=== PATIENT | female | born 1965 | race Caucasian/White ===

== ENCOUNTER 2019-11-18 11:41 | Day surgery (SDC) | payer MEDICARE, OTHER ==
[2019-11-17 08:41] VITALS: BMI 44.2
[~2019-11-18 11:41] MED LIST: LACTATED RINGERS 1,000 ML IV SCH; LIDOCAINE 1% (10MG/ML) FOR IV START INTRADERMA PRN
[2019-11-18 12:06] VITALS: TEMP 97.4
[2019-11-18] MEDS ORDERED: MIDAZOLAM 2 MG/2 ML VIAL ONE (12:14)
[2019-11-18] MEDS ORDERED: PROPOFOL 10 MG/ML 20 ML VIAL IV ONE (12:14)
--- NOTE | 2019-11-18 12:32 | P.PCN ---
Date of Procedure: 11/18/19 Procedure(s) Performed: BRIEF HISTORY: Patient is a 54-year-old pleasant female scheduled for an elective colonoscopy as a part of screening for colorectal neoplasia. PROCEDURE PERFORMED: Colonoscopy. PREOPERATIVE DIAGNOSIS: Screening for colon cancer. IV sedation per Anesthesia. PROCEDURE: After informed consent was obtained, the patient, was brought into the endoscopy unit. IV sedation was administered by Anesthesia under continuous monitoring. Digital rectal examination was normal. Initially the Olympus CF-160 flexible video colonoscope was then inserted in the rectum, gradually advanced into the cecum without any difficulty. Careful examination was performed as the scope was gradually being withdrawn. Ileocecal valve and the appendiceal orifice were visualized and appeared normal. Prep was excellent. Mucosa of the cecum, ascending colon, transverse colon, descending colon, sigmoid colon, and rectum appeared normal. Scattered sigmoidal diverticulosis seen. Retroflexion was performed in the rectum and no lesions were seen. The patient tolerated the procedure well. IMPRESSION: Normal-appearing colon from rectum to cecum with no evidence of colorectal neoplasia Scattered sigmoidal diverticulosis. RECOMMENDATIONS: Findings of this examination were discussed with the patient as well as her family. She was advised to have a repeat screening colonoscopy in 10 years.
[2019-11-18 12:49] VITALS: RESP 16
[2019-11-18 13:00] VITALS: BP 160/86; PULSE 61
== END 2019-11-18 13:12 | disposition home or self-care (01) ==
LOC: ORWHC2ENDO 11:41
PROVIDERS: ATTEND Internal Medicine Gastroenterology
DX: Z12.11 Encounter for screening for malignant neoplasm of colon (principal); K57.30 Diverticulosis of large intestine without perforation or abscess without bleeding; Z88.5 Allergy status to narcotic agent; Z91.040 Latex allergy status; Z79.890 Hormone replacement therapy; E07.9 Disorder of thyroid, unspecified; E66.01 Morbid (severe) obesity due to excess calories; Z68.42 Body mass index [BMI] 45.0-49.9, adult
CPT/HCPCS: J2250; J2704; G0121

== ENCOUNTER → 2019-11-25 | Outpatient (CLI) | payer MEDICARE ==
--- NOTE | 2019-11-25 18:20 | CT ---
EXAMINATION TYPE: CT ANGIO RT AXILLA W CON W 2-D MPR RECONS DATE OF EXAM: 11/25/2019 6:01 PM HISTORY: Rt upper arm limb pain. Acute embolism and thrombosis of deep veins. Pt was told blood clot in RT arm from US imaging from another hospital. No hx but daughter just passed from blood clot. Pt h abitus difficult to get entire arm in view. TECHNIQUE: Performed with IV Contrast, patient injected with 100 mL of Isovue 370. Automated exposure control for dose reduction was used. CT DLP: 770.30 mGycm COMPARISON: None FINDINGS: Imaging of the right axilla was obtained. The vasculature is normally opacified without filling defects to suggest embolism/thrombosis. No incidental findings. IMPRESSION: NEGATIVE EXAMINATION.
--- NOTE | 2019-11-25 18:27 | CT ---
EXAMINATION TYPE: CT angio chest w cont w reconstruction renderings DATE OF EXAM: 11/25/2019 6:01 PM COMPARISON: None HISTORY: Rt upper arm limb pain. Acute embolism and thrombosis of deep veins. Pt was told blood clot in RT arm from US imaging from another hospital. No hx but daughter just passed from blood clot. Pt h abitus difficult to get entire arm in view. CT DLP: 1250.50 mGycm Automated exposure control for dose reduction was used. CONTRAST: CTA scan of the thorax is performed with IV Contrast, patient injected with 100 mL of Isovu e 370, pulmonary embolism protocol; multiple reconstruction renderings. FINDINGS: LUNGS: The lungs are grossly clear, there is no concerning parenchymal mass or nodule identified. The re is no pleural effusion or pneumothorax seen. The tracheobronchial tree is patent. MEDIASTINUM: There is mild cardiomegaly. No pericardial effusion. No acute aortic findings. Pulmonary arterial tree is patent without evidence of filling defects to suggest pulmonary emboli. There is ao rtic tortuosity. No adenopathy. SUPRACLAVICULAR/AXILLARY POSITIONS: The vasculature appears widely patent without filling defects to suggest thrombus. No incidental findings. OTHER: No additional significant abnormality is seen. IMPRESSION: 1. Negative for pulmonary embolism. 2. Mild cardiomegaly. 3. Thoracic aortic tortuosity.
== END | disposition home or self-care (01) ==
LOC: RADCTMAIN 15:56
PROVIDERS: ATTEND Family Medicine
DX: I51.7 Cardiomegaly (principal); Q25.46 Tortuous aortic arch; I82.621 Acute embolism and thrombosis of deep veins of right upper extremity; M79.621 Pain in right upper arm; M79.89 Other specified soft tissue disorders
CPT/HCPCS: 71275; 73206; Q9967

== ENCOUNTER 2020-09-01 06:32 | Observation (INO) | payer MEDICARE ==
[2020-09-01] MEDS ORDERED: SODIUM CHLORIDE 0.9% 500 ML 500 ML IV STA (06:55)
[2020-09-01] MEDS ORDERED: hydrALAZINE HCL 20 MG/ML 1 ML VIAL IVP STA ×2 (06:56→08:01)
--- NOTE | 2020-09-01 07:03 | ED ---
Neuro HPI - General Source: patient, family, RN notes reviewed Mode of arrival: ambulatory Limitations: no limitations - History of Present Illness Is the patient presenting with stroke symptoms?: No <Abner Moore - Last Filed: 09/01/20 08:11> <Johnny Gutierres - Last Filed: 09/01/20 08:24> - General Chief Complaint: Neuro Symptoms/Deficit Stated Complaint: R sided numbness Time Seen by Provider: 09/01/20 06:43 - History of Present Illness Initial Comments: This a 55-year-old female presents emergency Department with chief complaint of right-sided numbness. Patient states symptoms started around 2 AM she states started with a warm sensation to her right side of her face, right ear states that progressed to numbness of her face, tongue right arm and right leg. Patient states it lasted which she felt like a while but states it was only approximately 1 minute. Patient states she did call EMS EMS did arrive evaluated the patient and the patient signed off. Patient states that she had no symptoms at that time. She states now she has some right jaw, right cheek pa in. Patient states he has no symptoms of her upper or lower extremity other and she just feels generalized weak. 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 Patient has been and is followed by a neurologist as CMT clinic. Patient states that she does have history of hypothyroidism on medications no history of hypertension she states sometimes she has some whitecoat syndrome. Patient denies any abdominal pain including nausea vomiting no chest pain or shortness of breath. (Abner Moore) - Related Data Home Medications: Home Medications Medication Instructions Recorded Confirmed Levothyroxine Sodium 150 mcg PO DAILY 11/17/19 11/18/19 Allergies/Adverse Reactions: Allergies Allergy/AdvReac Type Severity Reaction Status Date / Time latex Allergy Rash/Hives Verified 09/01/20 06:37 meperidine [From Demerol] Allergy Nausea & Verified 09/01/20 06:37 Vomiting Review of Systems ROS Other: All systems not noted in ROS Statement are negative. <Abner Moore - Last Filed: 09/01/20 08:11> ROS Other: All systems not noted in ROS Statement are negative. <Johnny Gutierres - Last Filed: 09/01/20 08:24> ROS Statement: Those systems with pertinent positive or pertinent negative responses have been documented in the HPI. General Exam Limitations: no limitations General appearance: alert, in no apparent distress Head exam: Present: atraumatic, normocephalic, normal inspection Eye exam: Present: normal appearance, PERRL, EOMI. Absent: scleral icterus, conjunctival injection, periorbital swelling ENT exam: Present: normal exam, normal oropharynx, mucous membranes moist Neck exam: Present: normal inspection, full ROM. Absent: tenderness, meningismus, lymphadenopathy Respiratory exam: Present: normal lung sounds bilaterally. Absent: respiratory distress, wheezes, rales, rhonchi, stridor Cardiovascular Exam: Present: regular rate, normal rhythm, normal heart sounds. Absent: systolic murmur, diastolic murmur, rubs, gallop, clicks Back exam: Present: normal inspection Neurological exam: Present: alert, oriented X3, CN II-XII intact, reflexes solo l. Absent: motor sensory deficit Expanded Patient oriented to: Present: person, place, time Speech: Present: fluid speech Cranial nerves: EOM's Intact: Normal, Gag Reflex: Normal, Tongue Deviation: Normal, Nystagmus: Normal, Facial Sensation: Normal, Facial Palsy with Forehead Movement: Normal, Facial Palsy without Forehead Movement: Normal Cerebellar function: Finger to Nose: Normal, Heel to Moreland: Normal, Romberg: Normal Upper motor neuron: Dada Neglect: Normal, Pronator Drift: Normal Sensory exam: Upper Extremity Light Touch: Normal, UE 2 Point Discrimination: Normal, Lower Extremity Light Touch: Normal Motor strength exam: RUE: 5, LUE: 5, RLE: 5, LLE: 5 Eye Response: (4) open spontaneously Motor Response: (6) obeys commands Verbal Response: (5) oriented Skin exam: Present: warm, dry, intact, normal color. Absent: rash <Abner Moore - Last Filed: 09/01/20 08:11> Stroke MDM - Lab Data Result diagrams: 09/01/20 06:58 09/01/20 06:58 - EKG Data -: EKG Interpreted by Me <Abner Moore - Last Filed: 09/01/20 08:11> - Lab Data Result diagrams: 09/01/20 06:58 09/01/20 06:58 <Johnny Gutierres - Last Filed: 09/01/20 08:24> - Lab Data Lab Results 09/01/20 09/01/20 09/01/20 Range/Units 06:58 06:58 06:58 WBC 8.8 (3.8-10.6) k/uL RBC 4.81 (3.80-5.40) m/uL Hgb 14.9 (11.4-16.0) gm/dL Hct 43.8 (34.0-46.0) % MCV 91.1 (80.0-100.0) fL MCH 30.9 (25.0-35.0) pg MCHC 34.0 (31.0-37.0) g/dL RDW 12.7 (11.5-15.5) % Plt Count 212 (150-450) k/uL MPV 8.0 Neutrophils % 64 % Lymphocytes % 28 % Monocytes % 4 % Eosinophils % 2 % Basophils % 1 % Neutrophils # 5.6 (1.3-7.7) k/uL Lymphocytes # 2.4 (1.0-4.8) k/uL Monocytes # 0.4 (0-1.0) k/uL Eosinophils # 0.2 (0-0.7) k/uL Basophils # 0.0 (0-0.2) k/uL PT 9.6 (9.0-12.0) sec INR 0.9 (<1.2) APTT 27.6 (22.0-30.0) sec Sodium 139 (137-145) mmol/L Potassium 3.9 (3.5-5.1) mmol/L Chloride 105 (98-107) mmol/L Carbon Dioxide 25 (22-30) mmol/L Anion Gap 9 mmol/L BUN 20 H (7-17) mg/dL Creatinine 0.75 (0.52-1.04) mg/dL Est GFR (CKD-EPI)AfAm >90 (>60 ml/min/1.73 sqM) Est GFR (CKD-EPI)NonAf >90 (>60 ml/min/1.73 sqM) Glucose 116 H (74-99) mg/dL Calcium 9.7 (8.4-10.2) mg/dL Total Bilirubin 0.6 (0.2-1.3) mg/dL AST 19 (14-36) U/L ALT 12 (4-34) U/L Alkaline Phosphatase 102 (38-126) U/L Creatine Kinase 58 (30-135) U/L Troponin I (0.000-0.034) ng/mL Total Protein 7.5 (6.3-8.2) g/dL Albumin 4.4 (3.5-5.0) g/dL 09/01/20 Range/Units 06:58 WBC (3.8-10.6) k/uL RBC (3.80-5.40) m/uL Hgb (11.4-16.0) gm/dL Hct (34.0-46.0) % MCV (80.0-100.0) fL MCH (25.0-35.0) pg MCHC (31.0-37.0) g/dL RDW (11.5-15.5) % Plt Count (150-450) k/uL MPV Neutrophils % % Lymphocytes % % Monocytes % % Eosinophils % % Basophils % % Neutrophils # (1.3-7.7) k/uL Lymphocytes # (1.0-4.8) k/uL Monocytes # (0-1.0) k/uL Eosinophils # (0-0.7) k/uL Basophils # (0-0.2) k/uL PT (9.0-12.0) sec INR (<1.2) APTT (22.0-30.0) sec Sodium (137-145) mmol/L Potassium (3.5-5.1) mmol/L Chloride (98-107) mmol/L Carbon Dioxide (22-30) mmol/L Anion Gap mmol/L BUN (7-17) mg/dL Creatinine (0.52-1.04) mg/dL Est GFR (CKD-EPI)AfAm (>60 ml/min/1.73 sqM) Est GFR (CKD-EPI)NonAf (>60 ml/min/1.73 sqM) Glucose (74-99) mg/dL Calcium (8.4-10.2) mg/dL Total Bilirubin (0.2-1.3) mg/dL AST (14-36) U/L ALT (4-34) U/L Alkaline Phosphatase (38-126) U/L Creatine Kinase (30-135) U/L Troponin I <0.012 (0.000-0.034) ng/mL Total Protein (6.3-8.2) g/dL Albumin (3.5-5.0) g/dL - Medical Decision Making 55-year-old female presented for results right-sided numbness, subjective weakness. Patient has a in nature 0. Patient symptoms concerning for TIA. Patient remains hypertensive even after medications. Patient has hypertensive urgency. Patient will be admitted for further management treatment and evaluation by neurology. (Abner Moore) 09/01/20 08:11 EKG performed at 17:08 normal sinus rhythm rate of 73 MS 154 QRS 94 QTC is QTC 392/431 (Abner Moore) Past Medical History Past Medical History: Thyroid Disorder Additional Past Medical History / Comment(s): "leaky gut". b-6 deficient, folic acid absorption problem History of Any Multi-Drug Resistant Organisms: None Reported Past Surgical History: Section, Orthopedic Surgery, Tonsillectomy Additional Past Surgical History / Comment(s): lt ankle surgery Past Anesthesia/Blood Transfusion Reactions: No Reported Reaction Past Psychological History: No Psychological Hx Reported Smoking Status: Never smoker Past Alcohol Use History: Rare Past Drug Use History: None Reported - Past Family History Daughter(s) Family Medical History: Pulmonary Embolus Additional Family Medical History / Comment(s): age 30 from PE <Abner Moore - Last Filed: 09/01/20 08:11> Course <Johnny Gutierres - Last Filed: 09/01/20 08:24> Vital Signs 09/01/20 09/01/20 06:33 07:41 Temperature 98.3 F Pulse Rate 81 85 Respiratory 20 18 Rate Blood Pressure 206/124 199/93 O2 Sat by Pulse 97 98 Oximetry - Reevaluation(s) Reevaluation #1: 09/01/20 08:23 PA supervision: I personally evaluate this case patient does have a history of [id number]. She did wake up with right-sided facial numbness and right upper lower extremity numbness. CT imaging is negative. Patient will be admitted for neurology evaluation. I did discuss case with Dr. Irving (Johnny Gutierres) Disposition <Abner Moore - Last Filed: 09/01/20 08:11> <Johnny Gutierres - Last Filed: 09/01/20 08:24> Clinical Impression: Transient cerebral ischemia, Hypertensive urgency Disposition: ADMITTED IP TO THIS HOSP Condition: Fair Referrals: Griselda Tello MD [Primary Care Provider] - 1-2 days
[2020-09-01 07:07] LABS: Basophils % (A) 1 %; Eosinophils # (A) 0.2 k/uL (0-0.7); Eosinophils % (A) 2 %; HCT 43.8 % (34.0-46.0); HGB 14.9 gm/dL (11.4-16.0); Lymphocytes # (A) 2.4 k/uL (1.0-4.8); Lymphocytes % (A) 28 %; MCH 30.9 pg (25.0-35.0); MCV 91.1 fL (80.0-100.0); Monocytes # (A) 0.4 k/uL (0-1.0); Monocytes % (A) 4 %; Neutrophils # (A) 5.6 k/uL (1.3-7.7); Neutrophils % (A) 64 %; Platelet Count 212 k/uL (150-450); RBC 4.81 m/uL (3.80-5.40); RDW 12.7 % (11.5-15.5); WBC 8.8 k/uL (3.8-10.6)
[2020-09-01 07:18] LABS: African American GFR (CKD) >90 (>60 ml/min/1.73 sqM); Albumin 4.4 g/dL (3.5-5.0); Anion Gap 9 mmol/L; Blood Urea Nitrogen 20 mg/dL (7-17); Calcium 9.7 mg/dL (8.4-10.2); Carbon Dioxide 25 mmol/L (22-30); Chloride 105 mmol/L (98-107); Glucose 116 mg/dL (74-99); Non-African American GFR(CKD) >90 (>60 ml/min/1.73 sqM); Potassium 3.9 mmol/L (3.5-5.1); Sodium 139 mmol/L (137-145); Total Bilirubin 0.6 mg/dL (0.2-1.3); Total Protein 7.5 g/dL (6.3-8.2)
[2020-09-01 07:20] LABS: ALT 12 U/L (4-34); AST 19 U/L (14-36); Alkaline Phosphatase 102 U/L (38-126); Creatine Kinase 58 U/L (30-135)
[2020-09-01 07:22] LABS: INR 0.9 (<1.2); Partial Thromboplastin Time 27.6 sec (22.0-30.0); Prothrombin Time 9.6 sec (9.0-12.0)
--- NOTE | 2020-09-01 07:44 | CT ---
EXAMINATION TYPE: CT brain wo con DATE OF EXAM: 09/01/2020 COMPARISON: None INDICATION: Right sided arm weakness, blood pressure elevated DLP: 1090.4 mGycm, Automated exposure control for dose reduction was used. CONTRAST: None CT of the brain is performed utilizing 3 mm thick sections through the posterior fossa and 3 mm thick sections through the remaining calvarium. Study is performed within 24 hours of arrival to the hosp [facility]. No abnormal hyperdensity is present to suggest an acute intracranial hemorrhage. No mass lesion is evident. No acute infarcts are evident. Ventricles and sulci are appropriate for the patient age. There is opacification of the left maxillary sinus. Remaining paranasal sinuses and mastoid air cells are clear. IMPRESSIONS: 1. No acute intracranial process. 2. Opacification of the left maxillary sinus.
--- NOTE | 2020-09-01 07:44 | XR ---
EXAMINATION TYPE: XR chest 2V DATE OF EXAM: 09/01/2020 COMPARISON: None INDICATION: Altered mental status right-sided weakness TECHNIQUE: Frontal and lateral views of the chest are obtained. FINDINGS: The heart size is normal. The pulmonary vasculature is normal. The lungs are clear. IMPRESSION: 1. No acute pulmonary process.
[2020-09-01] MEDS ORDERED: SODIUM CHLORIDE 0.9% 500 ML 500 ML IV ONE (08:00)
[2020-09-01] MEDS ORDERED: KETOROLAC 15 MG/ML 1 ML VIAL IVP STA (08:01)
[2020-09-01] MEDS ORDERED: diphenhydrAMINE 50 MG/ML 1 ML VIAL IVP STA (08:01)
[2020-09-01] MEDS ORDERED: ASPIRIN 325 MG TAB PO STA (08:13)
--- NOTE | 2020-09-01 08:59 | US ---
EXAMINATION TYPE: US carotid duplex BILAT DATE OF EXAM: 09/01/2020 COMPARISON: NONE CLINICAL HISTORY: Stenosis. Patient states having right side numbness and tingling. HTN at this time . EXAM MEASUREMENTS: RIGHT: Peak Systolic Velocity (PSV) cm/sec ----- Right CCA: 87.3 ----- Right ICA: 84.6 ----- Right ECA: 8.6 ICA/CCA ratio: 1.0 RIGHT: End Diastole cm/sec ----- Right CCA: 19.4 ----- Right ICA: 19.4 ----- Right ECA: 7.7 LEFT: Peak Systolic Velocity (PSV) cm/sec ----- Left CCA: 108.2 ----- Left ICA: 82.7 ----- Left ECA: 85.9 ICA/CCA ratio: 0.8 LEFT: End Diastole cm/sec ----- Left CCA: 11.6 ----- Left ICA: 25.8 ----- Left ECA: 8.4 VERTEBRALS (direction of flow): Right Vertebral: Antegrade Left Vertebral: Antegrade Rhythm: Normal Bilateral wall thickening. Plaquing left proximal and mid CCA. Plaque seen in left bulb. No signifi cant stenosis. IMPRESSION: 1. Atheromatous plaquing without significant flow-limiting stenosis. Criteria for Assigning % of Stenosis / Diameter reduction (Estimation based on the indirect measurements of the internal carotid artery velocities (ICA PSV). 1. Normal (no stenosis)=ICA PSV < 125 cm/s: ratio < 2.0: ICA EDV<40 cm/s. 2. Less than 50% stenosis=ICA PSV < 125 cm/s: ratio < 2.0: ICA EDV<40 cm/s. 3. 50 to 69% stenosis=ICA PSV of 125 to 230 cm/s: ration 2.0 ? 4.0: ICA EDV 40-100 cm/s. 4. Greater than 70% stenosis to near occlusion= ICA PSV > 230 cm/s: ratio > 4.0: ICA EDV > 100 cm/s. 5. Near occlusion= ICA PSV velocities may be low or undetectable: variable ratio and ICA EDV. 6. Total occlusion=unable to detect flow.
[2020-09-01] MEDS: HYDROcodone/APAP 5-325MG 1 EACH TAB PO PRN (11:44)
--- NOTE | 2020-09-01 11:48 | ECHOF ---
Referral Reason:Thrombus MEASUREMENTS -------- HEIGHT: 160.0 cm WEIGHT: 113.4 kg BP: 164/89 RVIDd: 3.6 cm (< 3.3) IVSd: 1.8 cm (0.6 - 1.1) LVIDd: 3.5 cm (3.9 - 5.3) LVPWd: 2.0 cm (0.6 - 1.1) IVSs: 2.1 cm LVIDs: 1.9 cm LVPWs: 2.1 cm LAESV Index (A-L): 22.88 ml/m Ao Diam: 3.0 cm (2.0 - 3.7) AV Cusp: 1.8 cm (1.5 - 2.6) MV EXCURSION: 16.659 mm (> 18.000) MV EF SLOPE: 56 mm/s (70 - 150) EPSS: 0.4 cm MV E Henry: 0.84 m/s MV DecT: 210 ms MV A Henry: 1.09 m/s MV E/A Ratio: 0.77 RAP: 5.00 mmHg RVSP: 32.12 mmHg FINDINGS -------- Sinus rhythm. This was a technically adequate study. The left ventricular size is normal. There is severe concentric left ventricular hypertrophy. Ove rall left ventricular systolic function is normal with, an EF between 55 - 60 %. The right ventricle is normal in size. Normal LA size by volume 22+/-6 ml/m2. The right atrial size is normal. Interatrial and interventricular septum intact. The aortic valve is trileaflet and appears structurally normal. There is mild aortic valve sclerosi s. There is no evidence of aortic regurgitation. There is no evidence of aortic stenosis. No mitral regurgitation. Mild tricuspid regurgitation present. There is borderline pulmonary artery hypertension. The righ t ventricular systolic pressure, as measured by Doppler, is 32.12mmHg. There is no pulmonic regurgitation present. The aortic root size is normal. Normal inferior vena cava with normal inspiratory collapse consistent with estimated right atrial pre ssure of 5 mmHg. There is no pericardial effusion. CONCLUSIONS -------- 1. The left ventricular size is normal. 2. There is severe concentric left ventricular hypertrophy. 3. Overall left ventricular systolic function is normal with, an EF between 55 - 60 %. 4. There is mild aortic valve sclerosis. 5. Mild tricuspid regurgitation present. 6. There is borderline pulmonary artery hypertension. 7. The right ventricular systolic pressure, as measured by Doppler, is 32.12mmHg. [employer] TECHNICIAN: Lexy Smiley RDCS
[2020-09-01] MEDS: ACETAMINOPHEN TAB 325 MG TAB PO PRN (16:24)
--- NOTE | 2020-09-01 19:42 | P.CNNES ---
History of Present Illness Consult date: 09/01/20 Requesting physician: Abner Moore Reason for Consult: TIA History of Present Illness: Patient is a 55-year-old female, who came to the hospital this morning at 6:32 AM for right-sided numbness. Patient's symptoms started at 2 AM while watching TV, she felt warmth sensation in the right ear, and shortly after her right side of the face, tongue and the teeth became numb. Then it progressed to involve the right arm, and then her right leg from hip to the knee where it stopped. Shortly after the symptoms started receding back from leg all the way to the face. It lasted only for 1-2 minutes. Most of the symptoms resolved except she has some sensation in the right upper teeth and just anterior to the right tra shasta of the ear. This later sensation lasted for about 8 hours and then resolved. Patient states that her right arm felt weak. When patient arrived, her NIH stroke scale was 0. While in the ER, patient developed a bad headache involving the left frontal region which she rated 5-6/10, and then it extended to involve the back of the head in the neck shoulder region. There was no associated neck stiffness. She was given ibuprofen in the ER which did not help. She was given [place] and then Tylenol, and the headache went away in about 4 hours. At present she feels fine now. Vital signs on arrival was blood pressure 206/124, pulse rate [address] head showed no acute process. Opacification of the left maxillary sinus. Chest x-ray showed no acute pulmonary process. EKG shows normal sinus rhythm. Moderate voltage criteria for LVH. Carotid Doppler showed atheromatous plaquing without significant flow limiting stenosis. 2-D echo showed normal left ventricular size. Severe concentric LVH, EF is 55-60%. Mild aortic valve sclerosis. Mild TR. Borderline pulmonary artery hypertension. Patient does not take any antiplatelet medication at home. Blood test shows normal CBC, PT/PTT, electrolytes, renal function, hepatic panel, CK. Patient also carries a diagnosis of CMT and follows up with neurologist in CMT clinic. 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 Patient's mother also has CMT. Patient states that her balance is affected as a result of CMT. She has some numbness in the toes. Patient states that her brother had a cerebral aneurysm in his 30s, that was diagnosed after he had a stroke. The aneurysm was clipped before rupture. Patient has history of possible DVT in the right upper extremity, but when retested, shortly after, the clot was not found. Patient also tells that she was tested for clotting disorder but was negative. Patient has hypertension, denies diabetes, never smoked. Denies any heart condition. Patient says both parents had AK. Review of Systems As mentioned above in detail. Denies chest pain, shortness of breath, wheezing or cough. Denies nausea vomiting diarrhea. Denies double vision, loss of vision, hoarseness, sore throat, dysphagia. Denies loss of control of urine. Denies dysuria. Past Medical History Past Medical History: Thyroid Disorder Additional Past Medical History / Comment(s): "leaky gut". b-6 deficient, folic acid absorption problem. periferal neuropathy CMT History of Any Multi-Drug Resistant Organisms: None Reported Past Surgical History: Section, Orthopedic Surgery, Tonsillectomy Additional Past Surgical History / Comment(s): lt ankle surgery Past Anesthesia/Blood Transfusion Reactions: No Reported Reaction Past Psychological History: No Psychological Hx Reported Smoking Status: Never smoker Past Alcohol Use History: Rare Past Drug Use History: None Reported - Past Family History Daughter(s) Family Medical History: Pulmonary Embolus Additional Family Medical History / Comment(s): age 30 from PE Medications and Allergies Home Medications Medication Instructions Recorded Confirmed Type Ibuprofen [Motrin Ib] 600 mg PO Q8H PRN 09/01/20 09/01/20 History Levothyroxine Sodium [Synthroid] 100 mcg PO DAILY 09/01/20 09/01/20 History Liothyronine Sodium [Cytomel] 5 mcg PO BID 09/01/20 09/01/20 History Allergies Allergy/AdvReac Type Severity Reaction Status Date / Time latex Allergy Rash/Hives Verified 09/01/20 08:43 meperidine [From Demerol] Allergy Nausea & Verified 09/01/20 08:43 Vomiting Physical Examination - Vital Signs Vital Signs: Vital Signs Temp Pulse Pulse Resp BP BP Pulse Ox 09/01/20 15:39 98.1 F 84 16 131/80 96 09/01/20 15:30 16 09/01/20 15:05 98.3 F 77 18 140/77 99 09/01/20 14:00 81 18 154/87 99 09/01/20 13:00 88 18 99 09/01/20 12:00 92 18 99 09/01/20 11:46 92 18 167/92 99 09/01/20 11:00 92 18 163/86 99 09/01/20 10:00 92 18 161/87 99 09/01/20 09:00 95 18 164/89 99 09/01/20 08:25 84 18 175/99 99 09/01/20 07:41 85 18 199/93 98 09/01/20 06:33 98.3 F 81 20 206/124 97 Intake and Output 09/01/20 09/01/20 09/01/20 06:59 14:59 22:59 Intake Total 200 Balance 200 Intake: Oral 200 Other: Voiding Method Toilet # Voids 1 Weight 113.398 kg 113.398 kg On examination patient is a middle aged female very pleasant in no acute distress. Patient is alert awake oriented time place and person. Speech and linguistic function is normal. Attention and concentration fund of knowledge is adequate. On cranial examination pupils are round and reactive to light, visual alvarez are full to confrontation, extraocular muscles are intact with no nystagmus. Face is symmetric, tongue protrudes to the midline. Palatal elevation and sensation normal, hearing and shoulder shrug normal. Facial sensation normal. On muscle strength testing there is no pronator drift and the strength is normal in the arms distally and proximally. In the lower extremities her hip knees are normal. Ankle dorsiflexion is 3+ to 4- bilaterally, toe extension is only 1-2 bilaterally. Patient is areflexic. Plantars are flat. Sensory touch is equal with no neglect. No ataxia for fing er-to-nose testing. Tone is decreased in both feet. Bulk of muscles is normal. Gait deferred. There is no obvious bruit, S1 and S2 audible. Abdomen is soft, chest clear. Results - Laboratory Findings CBC and BMP: 09/01/20 06:58 09/01/20 06:58 Abnormal Lab Findings: Abnormal Labs 09/01/20 06:58 BUN 20 H Glucose 116 H Assessment and Plan Assessment: * Probable TIA manifesting with right-sided paresthesias with right arm weakness. Symptoms have resolved. * Accelerated hypertension * Cephalgia, possibly related to hypertension, rule out cerebral aneurysm (positive family history). * Wpnuscw-Dxfyo-Kehfa disease type IA. * Obesity Plan: * Patient has family history of cerebral aneurysm in her brother. With her TIA and sudden headache, we will check CTA of head and neck to rule out cerebral aneurysm. * MRI of the brain to evaluate for CVA. Patient states that she is severely claustrophobic, and her blood pressure goes up with stress. She does not want to have closed MRI. She wants to have an open MRI. I informed her that we do not have open MRI in [facility], and she was not pleased that it was n ot already scheduled (an open MRI) for her because she is claustrophobic. * I recommended fasting lipid panel, hemoglobin A1c, but patient argued that she just had it done a month ago and her cholesterol is fine and she does not want to have retested. * Agree with starting aspirin * Aggressive control of blood pressure. * Patient wants some "shot" to calm her down, as all these tests are making her very stressed out. She states that she does not want Xanax. I offered Ativan, but she had a lot of questions. I asked if she knows any medication that she has tried before, that helps her calm down, she replies "you are the doctor, should know about what medication to prescribe". I tried to reassure her that everything is fine and we are doing these tests just to rule out any other causes of recurrent strokes, given her family history, but she does not seem to get assured. After some counseling she agreed to try Ativan. Patient tells me that she is so stressed, that she is not sure if she will be able to handle CTA even. She claims that all this stress (of testing) is raising her blood pressure again. She tells me that someone in the ER has told her something, about some test, that I did not want to inquire further (as it will raise her stress and then BP). Hopefully Ativan will help. Patient apparently had CT angiogram of the chest done a few months ago. I reassured her that this test will be the same as her previous CTA chest, but she still did not appears relieved and continued to feel very stressed. She told me that she will wait for Ativan to work and then will decide. * MRI of the brain apparently already ordered by MANJINDER Brian, at 3 PM, but because of her level of stress, will cancel it. Please arrange open MRI as early as possible. * Neurology coverage not available over the weekend. Please feel free to perfect serve if any questions over the weekend. Time with Patient: Greater than 30 (Counseling and coordinating care.)
[2020-09-01] MEDS: LIOTHYRONINE SODIUM 5 MCG TAB PO SCH (20:08)
[2020-09-01] MEDS: hydrALAZINE HCL 20 MG/ML 1 ML VIAL IVP PRN (22:24)
[2020-09-01] MEDS ORDERED: LORazepam 2 MG/ML INJ IV STA (23:04)
[2020-09-02] MEDS: hydrALAZINE HCL 20 MG/ML 1 ML VIAL IVP PRN ×2 (01:37→06:35)
[2020-09-02] MEDS: HYDROcodone/APAP 5-325MG 1 EACH TAB PO PRN (02:16)
[2020-09-02] MEDS ORDERED: LEVOTHYROXINE 100 MCG TAB PO SCH (06:30)
[2020-09-02 07:00] LABS: Cholesterol 204 mg/dL (<200); HDL Cholesterol 53 mg/dL (40-60); LDL Cholesterol,Calculated 130 mg/dL (0-99); Triglycerides 107 mg/dL (<150)
[2020-09-02] MEDS: ACETAMINOPHEN TAB 325 MG TAB PO PRN (07:34)
[2020-09-02] MEDS: ASPIRIN 325 MG TAB PO SCH ×2 (07:35→07:46)
[2020-09-02] MEDS: LIOTHYRONINE SODIUM 5 MCG TAB PO SCH (07:36)
[2020-09-02 08:37] VITALS: RESP 16; TEMP 97.6
[2020-09-02 11:47] VITALS: BP 155/80; PULSE 90
[2020-09-02] MEDS ORDERED: IBUPROFEN 400 MG TAB PO PRN (12:05)
--- NOTE | 2020-09-02 12:36 | P.HPIM ---
History of Present Illness Patient is a very pleasant 55-year-old female came in with compensative right- sided weakness weakness restarted yesterday 2 AM symptoms resolved by the time EMS arrived. Patient was admitted for workup for stroke. Patient the CT did not show any significant abnormality, patient is supposed to get an MRI because of her severe anxiety MRI was not obtained, patient had an echocardiogram which was within normal limits LDL at 130. carotid doppler was with in normal limits. Patient blood pressure is significantly elevated and as per the patient it was okay at home. Patient was asked to check the blood pressure closely at home and part of her elevation in blood pressure is secondary to her anxiety. Part of which may be secondary to TIA. As her blood pressures consistently and highly elevated patient was started on low-dose of KELLY inhibitor as well. Patient doesn't have any symptoms of weakness or tingling numbness. Patient will be started on aspirin and statin, lisinopril and will be discharged today. Patient was monitored for more than 24 hours and had a workup for TIA as mentioned above. Review of Systems REVIEW OF SYSTEMS: CONSTITUTIONAL: No fever, no malaise, no fatigue. HEENT: No recent visual problems or hearing problems. Denied any sore throat. CARDIOVASCULAR: No chest pain, orthopnea, PND, no palpitations, no syncope. PULMONARY: No shortness of breath, no cough, no hemoptysis. GASTROINTESTINAL: No diarrhea, no nausea, no vomiting, no abdominal pain. NEUROLOGICAL: As mentioned in HPI. HEMATOLOGICAL: Denies any bleeding or petechiae. GENITOURINARY: Denies any burning micturition, frequency, or urgency. MUSCULOSKELETAL/RHEUMATOLOGICAL: Denies any joint pain, swelling, or any muscle pain. ENDOCRINE: Denies any polyuria or polydipsia. The rest of the 14-point review of systems is negative. Past Medical History Past Medical History: Thyroid Disorder Additional Past Medical History / Comment(s): "leaky gut". b-6 deficient, folic acid absorption problem. periferal neuropathy CMT History of Any Multi-Drug Resistant Organisms: None Reported Past Surgical History: Section, Orthopedic Surgery, Tonsillectomy Additional Past Surgical History / Comment(s): lt ankle surgery Past Anesthesia/Blood Transfusion Reactions: No Reported Reaction Past Psychological History: No Psychological Hx Reported Smoking Status: Never smoker Past Alcohol Use History: Rare Past Drug Use History: None Reported - Past Family History Daughter(s) Family Medical History: Pulmonary Embolus Additional Family Medical History / Comment(s): age 30 from PE Medications and Allergies Home Medications Medication Instructions Recorded Confirmed Type Ibuprofen [Motrin Ib] 600 mg PO Q8H PRN 09/01/20 09/01/20 History Levothyroxine Sodium [Synthroid] 100 mcg PO DAILY 09/01/20 09/01/20 History Liothyronine Sodium [Cytomel] 5 mcg PO BID 09/01/20 09/01/20 History Aspirin 325 mg PO DAILY #30 tab 09/02/20 Rx Atorvastatin [Lipitor] 40 mg PO HS #30 tablet 09/02/20 Rx Lisinopril [Prinivil] 10 mg PO DAILY #30 tab 09/02/20 Rx Allergies Allergy/AdvReac Type Severity Reaction Status Date / Time latex Allergy Rash/Hives Verified 09/01/20 08:43 meperidine [From Demerol] Allergy Nausea & Verified 09/01/20 08:43 Vomiting Physical Exam Vitals: Vital Signs Temp Pulse Pulse Resp BP BP Pulse Ox 09/02/20 08:38 90 16 09/02/20 07:30 97.6 F 90 16 155/80 94 L 09/02/20 06:31 197/88 09/02/20 02:10 98.5 F 94 17 156/70 96 09/02/20 01:20 198/98 09/01/20 23:00 179/83 09/01/20 22:00 206/79 09/01/20 19:48 98 F 84 16 174/79 97 09/01/20 15:39 98.1 F 84 16 131/80 96 09/01/20 15:30 16 09/01/20 15:05 98.3 F 77 18 140/77 99 09/01/20 14:00 81 18 154/87 99 09/01/20 13:00 88 18 99 Intake and Output 09/01/20 09/02/20 09/02/20 22:59 06:59 14:59 Intake Total 200 300 Balance 200 300 Intake: Oral 200 300 Other: Voiding Method Toilet Toilet Toilet # Voids 1 2 1 # Bowel Movements 1 Weight 113.398 kg PHYSICAL EXAMINATION: GENERAL: The patient is alert and oriented x3, not in any acute distress. Well developed, well nourished. HEENT: Pupils are round and equally reacting to light. EOMI. No scleral icterus. No conjunctival pallor. Normocephalic, atraumatic. No pharyngeal erythema. No thyromegaly. CARDIOVASCULAR: S1 and S2 present. No murmurs, rubs, or gallops. PULMONARY: Chest is clear to auscultation, no wheezing or crackles. ABDOMEN: Soft, nontender, nondistended, normoactive bowel sounds. No palpable organomegaly. MUSCULOSKELETAL: No joint swelling or deformity. EXTREMITIES: No cyanosis, clubbing, or pedal edema. NEUROLOGICAL: Gross neurological examination did not reveal any focal deficits. SKIN: No rashes. Results CBC & Chem 7: 09/01/20 06:58 09/01/20 06:58 Labs: Abnormal Lab Results - Last 24 Hours (Table) 09/01/20 Range/Units 06:48 Cholesterol 204 H (<200) mg/dL LDL Cholesterol, Calc 130 H (0-99) mg/dL Thrombosis Risk Factor Assmnt - Choose All That Apply Any of the Below Risk Factors Present?: Yes Each Factor Represents 1 point: Age 41-60 years, Obesity (BMI >25) Other Risk Factors: No Thrombosis Risk Factor Assessment Total Risk Factor Score: 2 Thrombosis Risk Factor Assessment Level: Low Risk Assessment and Plan Plan: -Possible transient ischemic attack: He appears to have sensory TIA involving the left thalamus. Workup as mentioned above and treatment and plan as mentioned in the history itself. -hypertension essential, new Diagnosis: Lisinopril as mentioned above -Hyperlipidemia -Hypothyroidism Patient will be discharged with the above-mentioned plan. Workup for TIA as mentioned above patient will be referred to neurology and patient will follow with PCP in about 3-7 days
--- NOTE | 2020-09-02 12:37 | P.DS ---
Providers Date of admission: 09/01/20 08:23 Attending physician: Keshawn Irving MD Consults: 09/01/20 08:14 Consult Physician Urgent Consulting Provider: Jenna Boone Consult Reason/Comments: TIA Do you want consulting provider notified?: Yes Primary care physician: Griselda Tello [facility] Course: Please refer to [facility] for further details Patient Condition at Discharge: Fair Plan - Discharge Summary New Discharge Prescriptions: New Aspirin 325 mg PO DAILY #30 tab Atorvastatin [Lipitor] 40 mg PO HS #30 tablet Lisinopril [Prinivil] 10 mg PO DAILY #30 tab No Action Liothyronine Sodium [Cytomel] 5 mcg PO BID Levothyroxine Sodium [Synthroid] 100 mcg PO DAILY Ibuprofen [Motrin Ib] 600 mg PO Q8H PRN PRN Reason: Pain Discharge Medication List Ibuprofen [Motrin Ib] 600 mg PO Q8H PRN 09/01/20 [History] Levothyroxine Sodium [Synthroid] 100 mcg PO DAILY 09/01/20 [History] Liothyronine Sodium [Cytomel] 5 mcg PO BID 09/01/20 [History] Aspirin 325 mg PO DAILY #30 tab 09/02/20 [Rx] Atorvastatin [Lipitor] 40 mg PO HS #30 tablet 09/02/20 [Rx] Lisinopril [Prinivil] 10 mg PO DAILY #30 tab 09/02/20 [Rx] Follow up Appointment(s)/Referral(s): Ludin Quinones MD [STAFF PHYSICIAN] - 1 Week Griselda Tello MD [Primary Care Provider] - 3 Days Discharge Disposition: HOME SELF-CARE
== END 2020-09-02 13:40 | disposition home or self-care (01) ==
LOC: EC 06:32 → 1SOBS 08:23
PROVIDERS: ADMIT Family Medicine; ATTEND Family Medicine
DX: G45.9 Transient cerebral ischemic attack, unspecified (principal); I16.0 Hypertensive urgency; G62.9 Polyneuropathy, unspecified; G60.0 Hereditary motor and sensory neuropathy; E03.9 Hypothyroidism, unspecified; I10 Essential (primary) hypertension; K90.9 Intestinal malabsorption, unspecified; E53.1 Pyridoxine deficiency; Z79.890 Hormone replacement therapy; Z82.49 Family history of ischemic heart disease and other diseases of the circulatory system; Z79.899 Other long term (current) drug therapy; Z88.5 Allergy status to narcotic agent; Z91.040 Latex allergy status
CPT/HCPCS: 96375 ×2; 96376 ×3; 96361; 96374; 99285; 36415; 93005; 93306; 80061; 80053; 82550; 84484; 85025; 85610; 85730; 71046; 93880; 70450; G0378 ×2; J2060; J0360 ×2; J1200; J1885

== ENCOUNTER → 2020-10-02 | Outpatient (CLI) | payer MEDICARE ==
--- NOTE | 2020-10-02 16:40 | EEG ---
ELECTROENCEPHALOGRAM REPORT DATE OF SERVICE: 10/02/2020 CLINICAL HISTORY: This is a 55-year-old woman with reported history of headache and numbness and tingling from the right side of the head all the way to the toes. The video EEG is obtained to evaluate for seizure and epileptiform activity. RELEVANT MEDICATION: Unknown if the patient is on any antiepileptic drugs. EEG TYPE: A routine 21-channel EEG is performed with video using the 10/20 electrode placement system. DESCRIPTION: Only wakefulness is only obtained. During wakefulness, there is a posterior- dominant rhythm of low voltage, reactive, of 8.5 to 9 hertz activity. There is no physiological stage II sleep seen. INTERICTAL AND ICTAL: None. ACTIVATION PROCEDURES: Photic stimulation did evoke a posterior driving response at multiple flash frequencies symmetrically. There is no abnormality seen with photic stimulation. Hyperventilation is not performed. CLINICAL INTERPRETATION: This is a normal routine EEG. There are no focal slowing, epileptiform discharges or seizure during the study. Clinical correlation is recommended. MMEUGENE / IJN: [id number] / EM
== END | disposition home or self-care (01) ==
LOC: NEUROMAIN 08:07
PROVIDERS: ATTEND Psychiatry & Neurology Neurology
DX: R20.2 Paresthesia of skin (principal); R20.0 Anesthesia of skin
CPT/HCPCS: 95816

== ENCOUNTER → 2020-10-02 | Outpatient (CLI) | payer MEDICARE ==
[2020-10-03 13:52] LABS: C-ANCA <1:20 Titer (<1:20)
== END | disposition home or self-care (01) ==
LOC: LABWHC1 09:50
PROVIDERS: ATTEND Psychiatry & Neurology Neurology
DX: I10 Essential (primary) hypertension (principal); R90.89 Other abnormal findings on diagnostic imaging of central nervous system; R20.0 Anesthesia of skin; R20.2 Paresthesia of skin; Z88.5 Allergy status to narcotic agent
CPT/HCPCS: 36415; 85652; 86038; 86141; 86255

== ENCOUNTER → 2021-01-05 | Outpatient (CLI) | payer MEDICARE ==
--- NOTE | 2021-01-05 18:38 | US ---
EXAMINATION TYPE: US venous doppler duplex LE BI DATE OF EXAM: 01/05/2021 4:19 PM COMPARISON: NONE CLINICAL HISTORY: Z86.73 History of stroke. SIDE PERFORMED: Bilateral TECHNIQUE: The lower extremity deep venous system is examined utilizing real time linear array sonog kwabena with graded compression, doppler sonography and color-flow sonography. VESSELS IMAGED: Common Femoral Vein Deep Femoral Vein Greater Saphenous Vein * Femoral Vein Popliteal Vein Small Saphenous Vein * Proximal Calf Veins (* superficial vessels) Difficult and limited study due to morbidly obese patient Right Leg: Appears negative for DVT Left Leg: Appears negative for DVT There is normal flow, compressibility, vascular waveforms. IMPRESSION: No evidence of deep venous thrombosis at or above the knees.
== END | disposition home or self-care (01) ==
LOC: RADUSWWP 14:22
PROVIDERS: ATTEND Internal Medicine Hematology & Oncology
DX: Z86.73 Personal history of transient ischemic attack (TIA), and cerebral infarction without residual deficits (principal)
CPT/HCPCS: 93970

== ENCOUNTER → 2021-11-06 | Outpatient (CLI) | payer MEDICARE ==
--- NOTE | 2021-11-07 17:21 | XR ---
EXAMINATION TYPE: XR chest 2V DATE OF EXAM: 11/06/2021 COMPARISON: 09/01/2020 INDICATION: Cough TECHNIQUE: Frontal and lateral views of the chest are obtained. FINDINGS: The heart size is normal. The pulmonary vasculature is normal. The lungs are clear. IMPRESSION: 1. No acute pulmonary process.
== END | disposition home or self-care (01) ==
LOC: RADXRYALE 16:21
PROVIDERS: ATTEND Family Medicine
DX: R05.9 Cough, unspecified (principal)
CPT/HCPCS: 71046

== ENCOUNTER → 2022-08-23 | Outpatient (CLI) | payer MEDICARE ==
--- NOTE | 2022-08-23 21:02 | XR ---
EXAMINATION TYPE: XR hand complete RT DATE OF EXAM: 08/23/2022 4:29 PM INDICATION: Patient age:Female; 57 years old; Reason for study: [id number] RT HAND PAIN; . COMPARISON: None TECHNIQUE: Frontal, lateral and oblique views of the right hand were obtained. FINDINGS: Normal alignment of the visualized joints. No acute osseous pathology is identified. No e vidence of soft tissue swelling. IMPRESSION: No abnormality to explain the patient's symptomology. Consider MRI. No acute osseous pathology.
== END | disposition home or self-care (01) ==
LOC: RADXRYALE 16:09
PROVIDERS: ATTEND Family Medicine
DX: M25.541 Pain in joints of right hand (principal)

== ENCOUNTER → 2023-12-22 | Outpatient (CLI) | payer MEDICARE ==
--- NOTE | 2023-12-22 17:54 | XR ---
EXAMINATION TYPE: XR chest 2V DATE OF EXAM: 12/22/2023 4:59 PM CLINICAL INDICATION:Female, 58 years old with history of R051,[id number] ACUTE COUGH,PHARYNGITIS; [facility] COMPARISON: Chest radiographs from 11/06/2021 TECHNIQUE: XR chest 2V Frontal and lateral views of the chest. FINDINGS: Lungs/Pleura: There is no evidence of pleural effusion, focal consolidation, or pneumothorax. Pulmonary vascularity: Unremarkable. Heart/mediastinum: Cardiomediastinal silhouette is unremarkable. Musculoskeletal: Multiple level degenerative disc disease changes seen throughout the spine. Other findings: None IMPRESSION: No acute cardiopulmonary disease/process.
== END | disposition home or self-care (01) ==
LOC: RADXRYALE 16:41
PROVIDERS: ATTEND Physician Assistant
DX: J02.9 Acute pharyngitis, unspecified (principal); R05.1 Acute cough
CPT/HCPCS: 71046